=== PATIENT | female | born 1990 ===

== ENCOUNTER 2022-04-14 11:45 | Inpatient (IN) | payer OTHER ==
[~2022-04-14] VITALS: Ht 167.6 cm; Wt 92.5 kg
== END 2022-04-21 17:27 | disposition home or self-care (01) | DRG 743 ==
LOC: O/R 04-20 09:25 → OB/GYN 04-20 09:25
PROVIDERS: ADMIT Obstetrics & Gynecology; ATTEND Obstetrics & Gynecology
PROC: 0UT64ZZ Resection of Left Fallopian Tube, Percutaneous Endoscopic Approach (ICD-10-PCS; 2022-04-20)
PROC: 0DNW4ZZ Release Peritoneum, Percutaneous Endoscopic Approach (ICD-10-PCS; 2022-04-20)
PROC: 0UT94ZZ Resection of Uterus, Percutaneous Endoscopic Approach (ICD-10-PCS; principal; 2022-04-20 10:00)
DX: D25.1 Intramural leiomyoma of uterus (principal); D25.2 Subserosal leiomyoma of uterus; N73.6 Female pelvic peritoneal adhesions (postinfective); N72 Inflammatory disease of cervix uteri; Z20.822 Contact with and (suspected) exposure to COVID-19